=== PATIENT | female | born 1955 | race Caucasian/White ===

== ENCOUNTER 2016-06-18 18:24 | Emergency (ER) | payer BC ==
--- NOTE | ~2016-06-18 | ER ---
PATIENT'S NAME: DERRICK ANTHONY [facility] AGE: 60 Y [address] ROOM: [place] [address] LOCATION: ED ADMIT DATE: 06/18/2016 ER/Outpatient Report DISCHARGE DATE: 06/18/2016 FAMILY PHYSICIAN: Brijesh Acevedo MD ATTENDING PHYSICIAN: Mayte Watt Time of Arrival: 1824 hours. Time of Evaluation: 1835 hours. CHIEF COMPLAINT: Swelling, redness to right lower extremity. HISTORY OF PRESENT ILLNESS: This is a 60-year-old female, who presents to the ER. She states that she has had an infection to her right lower leg. The patient states 4 days ago, she noticed what she thought was a bug bite to the anterior wilhelm of her right leg. She states that there was an area of erythema around that area, and she did see her primary care physician at that time. She was started on Bactrim, but since that time, the redness has gotten bigger. She feels like her leg is become more swollen. She has not been running any fevers at home. She denies any shortness of breath. No chest pain. No other problems at this time. She states she has never had anything like this before. ALLERGIES: NO KNOWN ALLERGIES. MEDICATIONS: Please see medication list in nurse's notes. PAST MEDICAL HISTORY: Depression and hypothyroidism. SOCIAL HISTORY: Smokes 1 pack a day for the last 45 years. Denies any drug or alcohol use. REVIEW OF SYSTEMS: A 10-point review of system was completed and was negative with the exception of those discussed in the HPI. PHYSICAL EXAMINATION: VITAL SIGNS: Height 5 feet 6 inches stated, weight 94 kg taken, blood pressure is 124/76, pulse 91, respirations 18, temperature 97 degrees tympanically, saturation 100% on room air. [place] Coma Score is 15. GENERAL: An alert, calm, well-developed female, in no acute distress. HEENT: Head: Normocephalic. She does display moist mucous membranes. PATIENT'S NAME: DERRICK ANTHONY [facility] AGE: 60 Y [address] ROOM: [place] [address] LOCATION: [facility] ADMIT DATE: 06/18/2016 ER/Outpatient Report DISCHARGE DATE: 06/18/2016 FAMILY PHYSICIAN: Brijesh Acevedo MD ATTENDING PHYSICIAN: Mayte Watt LUNGS: Clear to auscultation bilaterally. No wheezes or crackles. Normal respiratory effort. HEART: Regular rate and rhythm. No lifts, thrills, or murmurs. EXTREMITIES: She has no clubbing or cyanosis. She does have a large area of erythema noted to the right anterior wilhelm. There is a scabbed over lesion on the lateral side of the erythema. There is no active draining. No induration to the skin. She has no calf tenderness with palpation. She has good pulses bilaterally to lower extremities. Full range of motion of all of her limbs. LABORATORY DATA AND X-RAYS: CBC: White count is 4.2, hemoglobin is 11.1, platelets 159. We did do a venous Doppler of the right lower extremity, was negative for DVT, but she does have some lymphadenopathy noted in her groin area. IMPRESSION: Right lower extremity cellulitis. ASSESSMENT AND PLAN: We did give the patient a shot of Rocephin here in the emergency room. She did tolerate that well. We will dismiss her to home with a prescription for Keflex to use as directed. We did draw around the erythematic borders so that she may monitor this. She needs to monitor her symptoms closely and follow up with her primary care physician in the next 1 to 2 days and return here to the emergency room if she worsens. The patient understands and agrees with care. ALVARADO ESPINAL PA-C FOR MD MICHELLE ORELLANA/penelope /[id number] d: 06/19/16 0031 t: 06/22/16 0027, OUTPATIENT REPORT
--- NOTE | ~2016-06-18 | ENPV ---
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 Conclusions Summary TECHNIQUE: The veins of the lower extremity on the left were evaluated from the groin to the ankle using parker scale, compression, augmentation. Venous hemodynamics were evaluated with color flow and spectral Doppler. FINDINGS: Normal venous duplex study of the left lower extremity. There is no evidence of deep or superficial venous thrombosis. The right common femoral vein was imaged as well and found to be negative. IMPRESSION: NEGATIVE LEFT LOWER EXTREMITY VENOUS DOPPLER. Procedure Type of Study: Veins:Lower Extremities DVT Study, Lower Extremity Left. Patient Status:STAT. Study Location:ER. Technical Quality:Good visualization. Velocities are measured in cm/s ; Diameters are measured in cm Right Lower Extremities DVT Study Measurements Right 2D and Doppler Measurements + + + + +------+------+ + !Location !Visualized!Compressibility!Thrombosis!Signal!Reflux!Reflux ! ! ! ! ! ! ! !(sec) ! + + + + +------+------+ + !GSV Thigh !Yes !Yes !None !Phasic!No ! ! + + + + +------+------+ + !Common !Yes !Yes !None !Phasic!No ! ! !Femoral ! ! ! ! ! ! ! + + + + +------+------+ + !Prox !Yes !Yes !None !Phasic!No ! ! !Femoral ! ! ! ! ! ! ! + + + + +------+------+ + !Mid Femoral!Yes !Yes !None !Phasic!No ! ! + + + + +------+------+ + !Dist !Yes !Yes !None !Phasic!No ! ! !Femoral ! ! ! ! ! ! ! + + + + +------+------+ + !Popliteal !Yes !Yes !None !Phasic!No ! ! + + + + +------+------+ + !Gastroc !Yes !Yes !None !Phasic!No ! ! + + + + +------+------+ + !PTV !Yes !Yes !None !Phasic!No ! ! + + + + +------+------+ + !Peroneal !Yes !Yes !None !Phasic!No ! ! + + + + +------+------+ + Left Lower Extremities DVT Study Measurements Left 2D and Doppler Measurements + + + + +------+------+ + !Location !Visualized!Compressibility!Thrombosis!Signal!Reflux!Reflux ! ! ! ! ! ! ! !(sec) ! + + + + +------+------+ + !Common !Yes !Yes !None ! ! ! ! !Femoral ! ! ! ! ! ! ! + + + + +------+------+ + Signature dtt: Remi Eric dtniru: 06/18/16 1930 Physician Self Edit
[2016-06-18 19:09] LABS: BASOPHIL % 0.5 %; EOSINOPHIL # 0.2 K/uL (0.0-0.5); EOSINOPHIL % 4.3 %; HEMATOCRIT 32.7 % (33.0-46.0); HEMOGLOBIN 11.1 g/dL (10.0-15.0); IMMATURE GRANULOCYTE % 0.5 %; LYMPHOCYTE % 25.1 %; MCH 30.3 pg (27.0-34.0); MCHC 33.9 gm/dL (32.0-36.5); MCV 89.3 fl (83.0-98.0); MONOCYTE # 0.3 K/uL (0.0-1.0); MONOCYTE % 7.7 %; MPV 10.5 fl (9.4-12.4); NEUTROPHIL # (ANC) 2.6 K/uL (1.8-7.8); NEUTROPHIL % 61.9 %; NRBC % 0 /100WBC (0-0.00); PLATELET COUNT 159 K/uL (150-450); RBC 3.66 M/uL (3.50-5.50); RDW-CV 14.4 % (11.9-14.6); WBC 4.2 K/uL (4.0-11.0)
== END 2016-06-18 20:21 | disposition disaster alternative care site (69) ==
LOC: GMED 18:24
PROVIDERS: Physician Assistant Medical
DX: L03.115 Cellulitis of right lower limb (principal); F32.9 Major depressive disorder, single episode, unspecified; E03.9 Hypothyroidism, unspecified; F17.210 Nicotine dependence, cigarettes, uncomplicated; Z79.899 Other long term (current) drug therapy
CPT/HCPCS: J0696